=== PATIENT | female | born 1980 | race Hispanic/Latino ===

== ENCOUNTER 2018-08-24 12:23 | Emergency (ER) | payer MEDICARE, OTHER ==
[2018-08-24 12:40] VITALS: TEMP 98.2; O2SAT 98
--- NOTE | 2018-08-24 13:30 | ED PDOC ---
HPI: Back Additional Complaint(s): Pt seen and examined at bedside with attending. 38F PMH schizophrenia, chronic LEFT back pain with sciatica who walked into the ER with her mother. She presents with worsening lower back pain since Friday and denies traumatic etiology. She states that her LEFT-sided symptoms worsened and then "spread to the RIGHT" with associated pain radiating into bilateral lower extremities. SHe called her mother to come and pick her up from her boyfriend's and mother agrees that she was walking more slowly than usual today. Pt denies any fevers, chills, pain/burning/frequency on urination, diarrhea and denies any bowel/bladder incontinence. Although she reports pain into bilateral lower extremities she denies numbness/tingling/weakness. <Mitzi Campos - Last Filed: 08/24/18 17:30> Chief Complaint (Provider): back pain <Anthony Rajput III - Last Filed: 08/24/18 17:42> Time Seen by Provider: 08/24/18 13:01 Chief Complaint (Nursing): Back Pain Past Medical History Vital Signs: Last Vital Signs Temp 36.8 C 08/24/18 12:36 Pulse 95 H 08/24/18 12:36 Resp 16 08/24/18 12:36 BP 109/71 08/24/18 12:36 Pulse Ox 98 08/24/18 12:36 - Medical History PMH: Schizophrenia Denies: Chronic Kidney Disease - Family History Family History: States: Unknown Family Hx <Mitzi Campos - Last Filed: 08/24/18 17:30> Vital Signs: Last Vital Signs Temp 98.2 F 08/24/18 12:36 Pulse 95 H 08/24/18 12:36 Resp 16 08/24/18 12:36 BP 109/71 08/24/18 12:36 Pulse Ox 98 08/24/18 17:30 <Anthony Rajput III - Last Filed: 08/24/18 17:42> - Home Medications Home Medications: Ambulatory Orders Medication Instructions Recorded Benztropine [Cogentin] 1 mg PO BID 01/06/16 Clozapine 100 mg PO BID 01/06/16 Divalproex [Depakote ER] 1,000 mg PO HS 01/06/16 Folic Acid 1 mg PO DAILY 03/19/16 Haloperidol [Haldol] 10 mg PO BID 01/06/16 Levonorgestrel-Ethin Estradiol 1 tab PO HS 01/06/16 [Levora-28 Tablet] Meclizine [Antivert] 12.5 mg PO Q6H PRN 01/06/16 Methotrexate Sodium [Methotrexate] 10 mg PO QWK 01/06/16 Acetaminophen [Tylenol 325mg tab] 650 mg PO Q6H PRN #40 tab 08/24/18 Cyclobenzaprine HCl 10 mg PO HS #10 tablet 08/24/18 Naproxen [Naprosyn] 500 mg PO BID PRN #14 tablet 08/24/18 - Allergies Allergies/Adverse Reactions: Allergies Allergy/AdvReac Type Severity Reaction Status Date / Time No Known Allergies Allergy Verified 08/24/18 12:36 Supervising Attending Note - Attestation: I have personally seen and examined this patient.: Yes I have fully participated in the care of the patient.: Yes I have reviewed all pertinent clinical information: Yes - Notes: Notes:: agree w resident findings, pt seen examined labs reviewed improved w conservative therapy in ED ambulating well no neurologic symptoms DC w NSAID, flexeril, caution as may make drowsy, followup PMD 1-2 days <Anthony Rajput III - Last Filed: 08/24/18 17:42> Review of Systems ROS Statement: Except As Marked, All Systems Reviewed And Found Negative Musculoskeletal: Positive for: Back Pain (with radiation into lower extremities) <Mitzi Campos - Last Filed: 08/24/18 17:30> Physical Exam - Reviewed Vital Signs Reviewed: Yes - Physical Exam Appears: Positive for: Non-toxic Head Exam: Positive for: ATRAUMATIC Skin: Positive for: Normal Color, Warm, Dry Eye Exam: Positive for: Normal appearance, EOMI Cardiovascular/Chest: Positive for: Regular Rate, Rhythm Respiratory: Positive for: Normal Breath Sounds. Negative for: Crackles, Rales, Rhonchi, Wheezing Gastrointestinal/Abdominal: Positive for: Bowel Sounds, Soft. Negative for: Tenderness Back: Negative for: L CVA Tenderness, R CVA Tenderness, Vertebral Tenderness Neurologic/Psych: Positive for: Alert, Oriented, Motor/Sensory Deficits (strength 5/5, straight leg b/l positive; patient declining to get out of bed due to pain), Mood/Affect (flat affect) <Mitzi Campos - Last Filed: 08/24/18 17:30> - Laboratory Results Result Diagrams: 08/24/18 13:05 08/24/18 13:05 - ECG O2 Sat by Pulse Oximetry: 98 <Mitzi Campos - Last Filed: 08/24/18 17:30> - Laboratory Results Result Diagrams: 08/24/18 13:05 08/24/18 13:05 <Anthony Rajput III - Last Filed: 08/24/18 17:42> Medical Decision Making Medical Decision Making: Muscle spasm vs. muscle strain - CBC, CMP - Toradol, Flexeril 1419 Labs w/o anemia or electrolyte derangements. 1715 Patient feeling better, able to ambulate without assistance. <Mitzi Campos - Last Filed: 08/24/18 17:30> Disposition - Patient ED Disposition Is Patient to be Admitted: No Counseled Patient/Family Regarding: Diagnosis, Need For Followup, Rx Given - Disposition Disposition: Routine/Home Disposition Time: 17:29 <Mitzi Campos - Last Filed: 08/24/18 17:30> <Anthony Rajput III - Last Filed: 08/24/18 17:42> - Clinical Impression Clinical Impression: Lower back pain, Back pain with sciatica - Disposition Referrals: Rui Moise MD [Family Provider] - Condition: IMPROVED Additional Instructions: - Follow up with primary care doctor for physical therapy - Return to the ER for worsening back pain, loss of bowel or bladder function Prescriptions: Acetaminophen [Tylenol 325mg tab] 650 mg PO Q6H PRN #40 tab PRN Reason: Pain, Moderate (4-7) Cyclobenzaprine HCl 10 mg PO HS #10 tablet Naproxen [Naprosyn] 500 mg PO BID PRN #14 tablet PRN Reason: Pain, Moderate (4-7) Instructions: Low Back Pain (DC) Forms: [employer] ([place])
[2018-08-24 13:50] LABS: BASO # 0.1 K/uL (0.0-0.2); HEMOGLOBIN 13.4 g/dL (12.0-16.0); LYMPH # 1.8 K/uL (1.0-4.3); LYMPH % 31.2 % (20.0-40.0); MEAN CELL VOLUME 96.3 fl (81.0-99.0); MEAN CORPUSCULAR HGB CONC 32.2 g/dL (33.0-37.0); MEAN PLATELET VOLUME 9.3 fl (7.2-11.7); MONO # 0.4 K/uL (0.0-0.8); MONO % 7.2 % (0.0-10.0); NEUT # 3.5 K/uL (1.8-7.0); NEUT % 60.6 % (50.0-75.0); NRBC % 0.1 % (0.0-0.0); RBC 4.3 Mil/uL (3.80-5.20); RED CELL DISTRIBUTION WIDTH 13.8 % (11.5-14.5); WHITE BLOOD COUNT 5.8 K/uL (4.8-10.8)
[2018-08-24 14:00] LABS: ALBUMIN 3.9 g/dL (3.5-5.0); ALT/SGPT 51 U/L (9-52); AST/SGOT 42 U/L (14-36); BLOOD UREA NITROGEN 10 mg/dl (7-17); GFR NON-AFRICAN AMERICAN > 60
[2018-08-24 15:44] LABS: BARBITURATES, UR NEGATIVE (NEGATIVE); BENZODIAZEPINES, UR NEGATIVE (NEGATIVE); OPIATES, UR NEGATIVE (NEGATIVE); PHENCYCLIDINE, UR NEGATIVE (NEGATIVE)
[2018-08-24 20:08] VITALS: BP 106/70; PULSE 90; RESP 18
== END 2018-08-24 17:42 | disposition home or self-care (01) ==
LOC: H.ER 12:23
DX: M54.5 Low back pain (principal); M54.30 Sciatica, unspecified side; Z86.59 Personal history of other mental and behavioral disorders
CPT/HCPCS: 80053; 81025; 85025; 96372; 99283; G0480; J1885